=== PATIENT | male | born 1995 | race Caucasian/White ===

== ENCOUNTER 2017-08-16 22:47 | Observation (INO) | payer BC ==
[2017-08-16] MEDS ORDERED: KETOROLAC 30 MG/ML 1 ML VIAL IVP STA (23:57)
[2017-08-16] MEDS ORDERED: SODIUM CHLORIDE 0.9% 1,000 ML IV ONE (23:57)
--- NOTE | 2017-08-17 00:24 | XR ---
EXAMINATION TYPE: XR ankle complete bilateral DATE OF EXAM: 08/17/2017 COMPARISON: NONE HISTORY: Ankle pain and swelling TECHNIQUE: 6 views FINDINGS: there is soft tissue swelling around the right ankle. I see no fracture nor dislocation. Subtalar sae int spaces are normal. The left and right calcaneus appear intact. I see no focal bone destruction. IMPRESSION: Soft tissue swelling around the right ankle. No fracture seen. Normal left ankle.
[2017-08-17] MEDS: SODIUM CHLORIDE 0.9% 1,000 ML IV SCH ×3 (00:25→11:31)
[2017-08-17 00:41] LABS: Basophils # (A) 0.1 k/uL (0-0.2); Basophils % (A) 1 %; Eosinophils # (A) 0.3 k/uL (0-0.7); Eosinophils % (A) 2 %; HCT 41.6 % (39.0-53.0); HGB 14.2 gm/dL (13.0-17.5); Lymphocytes % (A) 16 %; MCH 29.2 pg (25.0-35.0); MCHC 34.1 g/dL (31.0-37.0); MCV 85.5 fL (80.0-100.0); Monocytes # (A) 0.9 k/uL (0-1.0); Monocytes % (A) 7 %; Neutrophils # (A) 9.2 k/uL (1.3-7.7); Neutrophils % (A) 73 %; Platelet Count 172 k/uL (150-450); RBC 4.86 m/uL (4.30-5.90); WBC 12.7 k/uL (3.8-10.6)
[2017-08-17 00:56] LABS: ALT 34 U/L (21-72); AST 22 U/L (17-59); Albumin 3.9 g/dL (3.5-5.0); Alkaline Phosphatase 28 U/L (38-126); Anion Gap 15 mmol/L; Blood Urea Nitrogen 19 mg/dL (9-20); C Reactive Protein 54.7 mg/L (<10.0); Calcium 9.6 mg/dL (8.4-10.2); Carbon Dioxide 23 mmol/L (22-30); Chloride 106 mmol/L (98-107); Glucose 118 mg/dL (74-99); Potassium 4.3 mmol/L (3.5-5.1); Sodium 144 mmol/L (137-145); Total Bilirubin 0.7 mg/dL (0.2-1.3); Total Protein 6.8 g/dL (6.3-8.2)
--- NOTE | 2017-08-17 01:58 | US ---
EXAMINATION TYPE: US venous doppler duplex LE RT DATE OF EXAM: 08/17/2017 12:41 AM COMPARISON: NONE CLINICAL HISTORY: Pain. Pain and edema right ankle SIDE PERFORMED: Right TECHNIQUE: The lower extremity deep venous system is examined utilizing real time linear array sonog dale with graded compression, doppler sonography and color-flow sonography. VESSELS IMAGED: External Iliac Vein (EIV) Common Femoral Vein Deep Femoral Vein Greater Saphenous Vein * Femoral Vein Popliteal Vein Small Saphenous Vein * Proximal Calf Veins (* superficial vessels) Right Leg: No evidence of DVT IMPRESSION: Normal exam. No evidence of deep venous thrombosis in the right leg.
[2017-08-17] MEDS ORDERED: ceFAZolin IN SWFI 2 GM/20 ML SYRINGE IVP STA (02:16)
--- NOTE | 2017-08-17 02:16 | ED ---
Lower Extremity Injury HPI - General Source: patient, RN notes reviewed, old records reviewed Mode of arrival: ambulatory Limitations: physical limitation <Trisha Bowman - Last Filed: 08/17/17 04:03> <Antolin Jewell - Last Filed: 08/17/17 20:40> - General Chief Complaint: Extremity Injury, Lower Stated Complaint: ankle pain Time Seen by Provider: 08/16/17 23:36 - History of Present Illness Initial Comments: This patient is a 22-year-old male presents emergency Department stay chief complaint of right ankle pain and swelling. He reports that he's had this swelling for the past 4 days. It started at on when he was at work. He relates that he has a tremor standing all the time. He states that he came home from work and then went to [facility]. That time he had some swelling and redness the ankle but was not as bad as it is today. He states he did a workup including ultrasound and x-rays and blood work. Everything was negative and they sent him home. He's been taking anti- inflammatory medicine and reports no relief of the pain and swelling. Denies any fever or chills. Denies any chest pain shortness of breath, urinary symptoms. (Trisha Bowman) - Related Data Home Medications Medication Instructions Recorded Confirmed Naproxen Sodium [Aleve] 440 mg PO Q12H PRN 08/17/17 08/17/17 Previous Rx's Medication Instructions Recorded Cephalexin [Keflex] 500 mg PO Q8HR #21 cap 08/17/17 Allergies Allergy/AdvReac Type Severity Reaction Status Date / Time No Known Allergies Allergy Verified 08/17/17 11:28 Review of Systems ROS Other: All systems not noted in ROS Statement are negative. <Trisha Bowman - Last Filed: 08/17/17 04:03> ROS Other: All systems not noted in ROS Statement are negative. <Antolin Jewell - Last Filed: 08/17/17 20:40> ROS Statement: Those systems with pertinent positive or pertinent negative responses have been documented in the HPI. Past Medical History Past Medical History: No Reported History History of Any Multi-Drug Resistant Organisms: None Reported Past Surgical History: No Surgical Hx Reported Past Psychological History: No Psychological Hx Reported Smoking Status: Current every day smoker Past Alcohol Use History: None Reported Past Drug Use History: None Reported - Past Family History Mother History Unknown: Yes <Trisha Bowman - Last Filed: 08/17/17 04:03> General Exam Limitations: physical limitation General appearance: alert, in no apparent distress Head exam: Present: atraumatic, normocephalic, normal inspection Eye exam: Present: normal appearance, PERRL, EOMI. Absent: scleral icterus, conjunctival injection, periorbital swelling ENT exam: Present: normal exam, mucous membranes moist Neck exam: Present: normal inspection. Absent: tenderness, meningismus, lymphadenopathy Respiratory exam: Present: normal lung sounds bilaterally. Absent: respiratory distress, wheezes, rales, rhonchi, stridor Cardiovascular Exam: Present: regular rate, normal rhythm, normal heart sounds. Absent: systolic murmur, diastolic murmur, rubs, gallop, clicks GI/Abdominal exam: Present: soft, normal bowel sounds. Absent: distended, tenderness, guarding, rebound, rigid Extremities exam: Present: normal inspection, full ROM, normal capillary refill. Absent: tenderness, pedal edema, joint swelling, calf tenderness Right Lower Leg exam: Present: normal inspection, full ROM, erythema (mild erythema extending over lower anterir leg. ) Ankle exam: Present: tenderness, swelling, erythema (Patient has tender and swollen right ankle, ). Absent: normal inspection, full ROM Foot/Toe exam: Present: tenderness, swelling, erythema. Absent: normal inspection Neurovascular tendon exam: Present: no vascular compromise Gait: observed and limited by pain Back exam: Present: normal inspection Neurological exam: Present: alert, oriented X3, CN II-XII intact Psychiatric exam: Present: normal affect, normal mood <Trisha Bowman - Last Filed: 08/17/17 04:03> <Antolin Jewell - Last Filed: 08/17/17 20:40> - General Exam Comments Initial Comments: This patient is a 22-year-old male. Alert and oriented. No distress. ( Trisha Bowman) Vital Signs 08/16/17 08/17/17 08/17/17 22:50 01:05 01:21 Temperature 98.7 F 98.5 F 98.1 F Pulse Rate 80 72 76 Respiratory 18 18 18 Rate Blood Pressure 134/72 170/79 168/82 O2 Sat by Pulse 99 98 98 Oximetry 08/17/17 02:36 Temperature 98.4 F Pulse Rate 71 Respiratory 18 Rate Blood Pressure 163/82 O2 Sat by Pulse 98 Oximetry Medical Decision Making - Lab Data Result diagrams: 08/17/17 00:12 08/17/17 00:12 - Radiology Data Radiology results: report reviewed <Trisha Bowman - Last Filed: 08/17/17 04:03> - Lab Data Result diagrams: 08/17/17 00:12 08/17/17 00:12 <Antolin Jewell - Last Filed: 08/17/17 20:40> - Medical Decision Making This patient is a 22-year-old male presents emergency department today chief complaint of right ankle pain and swelling for the past week. Discussed possibility of gout. He has a negative uric acid this time. I did start the patient on IV fluids and given Toradol and blood work obtained. He has a elevated CRP. Patient has a mildly elevated white blood cell count as well 12, 000. Normal lactic acid. We did do blood cultures. I will send a urinalysis and check for chlamydia or gonorrhea. There is a question of this is inflammatory arthritis such as gout, versus cellulitis over the skin. He does have some mild erythema over the lower leg. It is time I'll initiate IV antibiotics. Given steroids as well as her for arthritic cause. Is also noted that he has some mild erythema over the left medial ankle. He reports he has some mild pain with this but not as much swelling or irritation compared to the right ankle. At this time Rnoan the patient and consult orthopedics. Patient may need to have a joint aspiration over the right ankle. (Trisha Bowman) I saw this patient in conjunction with the physician marketing support assistant. I performed independent history and physical exam. Agree with case management. (Antolin Jewell) - Lab Data Lab Results 08/17/17 08/17/17 08/17/17 Range/Units 00:12 00:12 00:12 WBC 12.7 H (3.8-10.6) k/uL RBC 4.86 (4.30-5.90) m/uL Hgb 14.2 (13.0-17.5) gm/dL Hct 41.6 (39.0-53.0) % MCV 85.5 (80.0-100.0) fL MCH 29.2 (25.0-35.0) pg MCHC 34.1 (31.0-37.0) g/dL RDW 13.0 (11.5-15.5) % Plt Count 172 (150-450) k/uL Neutrophils % 73 % Lymphocytes % 16 % Monocytes % 7 % Eosinophils % 2 % Basophils % 1 % Neutrophils # 9.2 H (1.3-7.7) k/uL Lymphocytes # 2.0 (1.0-4.8) k/uL Monocytes # 0.9 (0-1.0) k/uL Eosinophils # 0.3 (0-0.7) k/uL Basophils # 0.1 (0-0.2) k/uL Sodium 144 (137-145) mmol/L Potassium 4.3 (3.5-5.1) mmol/L Chloride 106 (98-107) mmol/L Carbon Dioxide 23 (22-30) mmol/L Anion Gap 15 mmol/L BUN 19 (9-20) mg/dL Creatinine 0.80 (0.66-1.25) mg/dL Est GFR (CKD-EPI)AfAm >90 (>60 ml/min/1.73 sqM) Est GFR (CKD-EPI)NonAf >90 (>60 ml/min/1.73 sqM) Glucose 118 H (74-99) mg/dL Plasma Lactic Acid Lex 0.8 (0.7-2.0) mmol/L Uric Acid 8.0 (3.5-8.5) mg/dL Calcium 9.6 (8.4-10.2) mg/dL Total Bilirubin 0.7 (0.2-1.3) mg/dL AST 22 (17-59) U/L ALT 34 (21-72) U/L Alkaline Phosphatase 28 L (38-126) U/L C-Reactive Protein 54.7 H (<10.0) mg/L Total Protein 6.8 (6.3-8.2) g/dL Albumin 3.9 (3.5-5.0) g/dL - Radiology Data Ultrasound was reviewed and negative for DVT. X-ray of the right ankle does show significant soft tissue swelling. Left ankle x-ray was reviewed and normal. (Trisha Bowman) Disposition Time of Disposition: 02:15 <Trisha Bowman - Last Filed: 08/17/17 04:03> <Antolin Jewell - Last Filed: 08/17/17 20:40> Clinical Impression: Right ankle pain, Elevated C-reactive protein (CRP), Ankle cellulitis Disposition: ADMITTED IP TO THIS HOSP Condition: Stable
[2017-08-17] MEDS ORDERED: IBUPROFEN 400 MG TAB PO PRN (02:22)
[2017-08-17] MEDS ORDERED: ONDANSETRON 4 MG/2 ML VIAL IVP PRN (02:22)
[2017-08-17] MEDS ORDERED: KETOROLAC 30 MG/ML 1 ML VIAL IVP PRN (02:22)
[2017-08-17] MEDS ORDERED: NALOXONE 0.4 MG/ML 1 ML VIAL IV PRN (02:22)
[2017-08-17] MEDS ORDERED: ACETAMINOPHEN TAB 325 MG TAB PO PRN (02:22)
[2017-08-17] MEDS ORDERED: methylPREDNISolone SOD SUCCI 125 MG/2 ML VIAL IV STA (02:25)
[2017-08-17 02:50] LABS: Appearance,Urine Clear (Clear); Bilirubin,Urine Negative (Negative); Blood,Urine Small (Negative); Color,Urine Yellow; Glucose,Urine (UA) Negative (Negative); Ketones,Urine Negative (Negative); Leukocyte Esterase,Urine Negative (Negative); Mucus,Urine Occasional /hpf; Nitrite,Urine Negative (Negative); PH, Urine 5.5 (5.0-8.0); Protein,Urine Negative (Negative); RBC,Urine 9 /hpf (0-5); Specific Gravity,Urine 1.022 (1.001-1.035); WBC,Urine 8 /hpf (0-5)
[2017-08-17 03:00] VITALS: RESP 16
[2017-08-17 03:14] VITALS: BMI 40.1
[2017-08-17 07:52] VITALS: BP 116/53; PULSE 96; TEMP 97.8
--- NOTE | 2017-08-17 10:58 | P.CNOR ---
History of Present Illness - [facility] Consult date: 08/17/17 Consult reason: other (Right ankle swelling and redness) History of present illness: Patient is pleasant 22-year-old man who was seen and examined today bedside. His primary issue is that of right ankle swelling although he had noticed some swelling in his left ankle as well. He says he did not have any specific injury. He had no trauma or issues in his leg or ankle. He has no history of any swelling or problems in his right ankle in the past. He says that on just 3 days ago after working started noticing swelling in his right ankle. 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 He went to [facility] and had evaluation was sent home and told to follow-up with his primary care doctor. He was unable to work the next day as he felt significant pain with any putting any weight on it on Friday and he felt the swelling was significant worse and was more red. He presented to [facility] on Friday and was started on an antibiotic as well as a steroid medication. He was admitted to the hospital. He feels he is making significant benefit since yesterday's after starting the medications. He denies any injury. Denies any prior trauma. Denies any history of gout. He does not have any stasis or recent travel. He has no recent illness that he can think of. He denies any history of GI problems or GI issues or rheumatologic issues. Review of Systems As per HPI. Denies any GI or gastric issues. Denies any rheumatologic issues in the past. He is not having any ALLERGIES. Denies any recent travel. Denies any bites or scratches or abrasions around his ankles. Denies any new tattoos. Constitutional: Reports as per HPI Past Medical History Past Medical History: No Reported History History of Any Multi-Drug Resistant Organisms: None Reported Past Surgical History: No Surgical Hx Reported Past Psychological History: No Psychological Hx Reported Smoking Status: Current every day smoker Past Alcohol Use History: None Reported Past Drug Use History: None Reported - Past Family History Mother History Unknown: Yes Medications and Allergies Home Medications Medication Instructions Recorded Confirmed Type Cephalexin [Keflex] 500 mg PO Q8HR #21 cap 08/17/17 Rx Allergies Allergy/AdvReac Type Severity Reaction Status Date / Time No Known Allergies Allergy Verified 08/16/17 22:54 Physical Examination Osteopathic Statement: *. No significant issues noted on an osteopathic structural exam other than those noted in the History and Physical/Consult. - Ankle & Foot right Ankle appearance: swelling, erythema (And his right ankle there is some diffuse swelling. He is able to move his ankle up and down and set aside without any significant pain though his overall motion is somewhat limited due to the swelling. He is not having severe pain with passive range of motion. He has some tenderness to palpation over his medial and lateral malleolus though there is no crepitus. The erythema is significantly improved as he has outlined mc from the erythema from last night apparently. There is no fluid collection specifically. There is no abscess. There is no focal fluid under pressure. He has sustained dorsal flexion plantar flexion and extensor hallucis longus with 5 out of 5 muscle strength throughout. His no pain in his knee or calf. There is no swelling of his calf. There is no streaking. I do not see any evidence of specific abrasion or bite yung. His left ankle apparently had some swelling yesterday but this is resolved. He is no pain in his hips. His abdomen soft nontender. He has diffuse tattoos over his upper extremities.) Results - Labs Labs: Abnormal Lab Results - Last 24 Hours (Table) 08/17/17 08/17/17 08/17/17 Range/Units 00:12 00:12 02:24 WBC 12.7 H (3.8-10.6) k/uL Neutrophils # 9.2 H (1.3-7.7) k/uL Glucose 118 H (74-99) mg/dL Alkaline Phosphatase 28 L (38-126) U/L C-Reactive Protein 54.7 H (<10.0) mg/L Urine Blood Small H (Negative) Urine RBC 9 H (0-5) /hpf Urine WBC 8 H (0-5) /hpf Urine Mucus Occasional H (None) /hpf H & H 08/17/17 Range/Units 00:12 Hgb 14.2 (13.0-17.5) gm/dL Hct 41.6 (39.0-53.0) % Result Diagrams: 08/17/17 00:12 08/17/17 00:12 - Diagnostic results Ankle/Foot x-ray: report reviewed (X-rays his bilateral ankles show good overall alignment and position of the joints. There is no evidence of any fracture or dislocation. There is no air.), image reviewed Assessment and Plan Assessment: Right ankle pain and swelling Likely cellulitis of the right ankle No evidence of any fracture or instability Plan: Right ankle pain and swelling Likely cellulitis of the right ankle No evidence of any fracture or instability The patient's ankle pain and swelling seems to be resolving well with medical management. He does not have any evidence of instability or fracture and I do not think that he needs further imaging at this point. He has good motion at his ankle joint itself and I think his ankle is stable and okay for him to weight-bear as tolerated. I do not see any evidence of any specific fluid collection or fluid under pressure. I do not have any plans for surgical intervention at this point. There is some slight increase in his white blood count and his CRP likely due to his cellulitis around his right ankle. This could be an isolated issue with gout or possible rheumatologic issue and development. Most likely notices some acute cellulitic issue which should resolve appropriately with acute medical management. I would plan to forego any aspiration of his ankle joint elicits good motion at this point. He is making good progress with medical management and should continue his steroid and oral and antibiotic as planned per medicine. He is scheduled to go home today and I think that is appropriate. We can follow him up in the next 1-2 days for recheck evaluation and further workup as needed.
--- NOTE | 2017-08-17 11:51 | P.DS ---
Providers Date of admission: 08/17/17 02:11 Attending physician: Clinton Licea Consults: 08/17/17 02:22 Consult Physician Stat Consulting Provider: Ernie Cadet Reason/Comments: Right ankle swelling, Gout vs. Septic Arthritis Do you want consulting provider notified?: Yes, Notify in am Primary care physician: Stated None Hospital Course: As described in HPI Patient Condition at Discharge: Stable Plan - Discharge Summary New Discharge Prescriptions: New Cephalexin [Keflex] 500 mg PO Q8HR #21 cap No Action Naproxen Sodium [Aleve] 440 mg PO Q12H PRN PRN Reason: Pain Discharge Medication List Cephalexin [Keflex] 500 mg PO Q8HR #21 cap 08/17/17 [Rx] Naproxen Sodium [Aleve] 440 mg PO Q12H PRN 08/17/17 [History] Follow up Appointment(s)/Referral(s): Gabe Hawthorne, [Doctor of Osteopathic Medicine] - 1-2 Days () None,Stated [Primary Care Provider] - 1-2 days Patient Instructions/Handouts: Cephalexin (By mouth), Cellulitis (DC), Swollen Joint (GEN) Discharge Disposition: HOME SELF-CARE
--- NOTE | 2017-08-17 11:51 | P.HPIM ---
History of Present Illness 22-year-old man who was seen and examined today bedside. His primary issue is that of right ankle swelling although he had noticed some swelling in his left ankle as well. He says he did not have any specific injury. He had no trauma or issues in his leg or ankle. He has no history of any swelling or problems in his right ankle in the past. He says that on just 3 days ago after working started noticing swelling in his right ankle. 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 He went to [facility] and had evaluation was sent home and told to follow-up with his primary care doctor. He was unable to work the next day as he felt significant pain with any putting any weight on it on Friday and he felt the swelling was significant worse and was more red. He presented to [facility] on Friday and was started on an antibiotic as well as a steroid medication. He was admitted to the hospital. He feels he is making significant benefit since yesterday's after starting the medications. Patient was a valid by Dr. Hawthorne cleared for discharge will follow with her partner partial outpatient patient did not have any history of MRSA in the past and patient probably has streptococcal cellulitis in both limbs weight loss was advised. Review of Systems REVIEW OF SYSTEMS: CONSTITUTIONAL: No fever, no malaise, no fatigue. HEENT: No recent visual problems or hearing problems. Denied any sore throat. CARDIOVASCULAR: No chest pain, orthopnea, PND, no palpitations, no syncope. PULMONARY: No shortness of breath, no cough, no hemoptysis. GASTROINTESTINAL: No diarrhea, no nausea, no vomiting, no abdominal pain. Normoactive bowel sounds. NEUROLOGICAL: No headaches, no weakness, no numbness. HEMATOLOGICAL: Denies any bleeding or petechiae. GENITOURINARY: Denies any burning micturition, frequency, or urgency. MUSCULOSKELETAL/RHEUMATOLOGICAL: Denies any joint pain, swelling, or any muscle pain. ENDOCRINE: Denies any polyuria or polydipsia. The rest of the 14-point review of systems is negative. Past Medical History Past Medical History: No Reported History History of Any Multi-Drug Resistant Organisms: None Reported Past Surgical History: No Surgical Hx Reported Past Psychological History: No Psychological Hx Reported Smoking Status: Current every day smoker Past Alcohol Use History: None Reported Past Drug Use History: None Reported - Past Family History Mother History Unknown: Yes Medications and Allergies Home Medications Medication Instructions Recorded Confirmed Type Cephalexin [Keflex] 500 mg PO Q8HR #21 cap 08/17/17 Rx Naproxen Sodium [Aleve] 440 mg PO Q12H PRN 08/17/17 08/17/17 History Allergies Allergy/AdvReac Type Severity Reaction Status Date / Time No Known Allergies Allergy Verified 08/17/17 11:28 Physical Exam Vitals: Vital Signs Temp Pulse Pulse Resp BP BP Pulse Ox 08/17/17 07:00 97.8 F 96 16 116/53 97 08/17/17 02:59 97.0 F L 78 16 159/77 97 08/17/17 02:36 98.4 F 71 18 163/82 98 08/17/17 01:21 98.1 F 76 18 168/82 98 08/17/17 01:05 98.5 F 72 18 170/79 98 08/16/17 22:50 98.7 F 80 18 134/72 99 Intake and Output 08/16/17 08/17/17 08/17/17 22:59 06:59 14:59 Intake Total 850 Balance 850 Intake: IV 500 Sodium Chloride 0.9% 1, 500 000 ml @ 100 mls/hr IV . Q10H PINA Rx#:[id number] Oral 350 Other: Voiding Method Toilet Toilet # Voids 1 Weight 128.367 kg 127.006 kg PHYSICAL EXAMINATION: GENERAL: The patient is alert and oriented x3, not in any acute distress. Well developed, well nourished. Obese HEENT: Pupils are round and equally reacting to light. EOMI. No scleral icterus. No conjunctival pallor. Normocephalic, atraumatic. No pharyngeal erythema. No thyromegaly. CARDIOVASCULAR: S1 and S2 present. No murmurs, rubs, or gallops. PULMONARY: Chest is clear to auscultation, no wheezing or crackles. ABDOMEN: Soft, nontender, nondistended, normoactive bowel sounds. No palpable organomegaly. MUSCULOSKELETAL: No joint swelling or deformity. EXTREMITIES: No cyanosis, clubbing, or pedal edema. NEUROLOGICAL: Gross neurological examination did not reveal any focal deficits. SKIN: Patient has left ankle cellulitis and there are areas of cellulitis in the right lower leg as well which improved at this point of time patient has Citrobacter infection Results CBC & Chem 7: 08/17/17 00:12 08/17/17 00:12 Labs: Abnormal Lab Results - Last 24 Hours (Table) 08/17/17 08/17/17 08/17/17 Range/Units 00:12 00:12 02:24 WBC 12.7 H (3.8-10.6) k/uL Neutrophils # 9.2 H (1.3-7.7) k/uL Glucose 118 H (74-99) mg/dL Alkaline Phosphatase 28 L (38-126) U/L C-Reactive Protein 54.7 H (<10.0) mg/L Urine Blood Small H (Negative) Urine RBC 9 H (0-5) /hpf Urine WBC 8 H (0-5) /hpf Urine Mucus Occasional H (None) /hpf Thrombosis Risk Factor Assmnt - Choose All That Apply Any of the Below Risk Factors Present?: Yes Each Factor Represents 1 point: Obesity (BMI >25), Swollen legs (current) Other Risk Factors: No Other congenital or acquired thrombophilia - If yes, enter type in comment: No Thrombosis Risk Factor Assessment Total Risk Factor Score: 2 Thrombosis Risk Factor Assessment Level: Low Risk Assessment and Plan Plan: -Cellulitis of bilateral lower limbs: She'll be discharged on Keflex for 7 days. Patient will follow with Dr. Hawthorne. -Rule out fracture -Obesity: Counseling was provided
[2017-08-17] MEDS ORDERED: ceFAZolin 1,000 MG in DEXTROSE/WATER 1 50ML.BAG IVPB SCH (12:00)
[2017-08-18 15:44] LABS: C. trachomatis,PCR Positive (Neg,Equiv); Chlamydia trachomatis Source Urine
[2017-08-18 15:47] LABS: N. gonorrhoeae,PCR Negative (Neg,Equiv); Neisseria Source Urine
== END 2017-08-17 13:00 | disposition home or self-care (01) ==
LOC: EC 22:47 → 5MS5E 08-17 02:11
PROVIDERS: ADMIT Internal Medicine; ATTEND Internal Medicine
DX: L03.115 Cellulitis of right lower limb (principal); L03.116 Cellulitis of left lower limb; R25.1 Tremor, unspecified; F17.200 Nicotine dependence, unspecified, uncomplicated; E66.9 Obesity, unspecified; Z68.41 Body mass index [BMI] 40.0-44.9, adult
CPT/HCPCS: 36415; 80053; 81001; 83605; 84550; 85025; 86140; 87040; 87491; 87591; 96361; 96374; 96375; 99284

== ENCOUNTER → 2020-05-22 | Outpatient (CLI) | payer BC | END | disposition home or self-care (01) | LOC: LABWHC1 13:23 | PROVIDERS: ATTEND Emergency Medicine | DX: Z20.822 Contact with and (suspected) exposure to COVID-19 (principal) | CPT/HCPCS: U0003; C9803; U0005 ==

== ENCOUNTER 2021-10-05 13:04 | Emergency (ER) | payer BC ==
[2021-10-05] MEDS ORDERED: FLUORESCEIN STRIPS 1 MG STRIP RIGHT EYE ONE (13:38)
[2021-10-05] MEDS ORDERED: PROPARACAINE 0.5% OPHTH DROPS 15 ML BTL RIGHT EYE STA (13:38)
--- NOTE | 2021-10-05 14:36 | ED ---
General Adult HPI - General Chief complaint: Eye Problems Stated complaint: [facility]-Eye Injury Time Seen by Provider: 10/05/21 14:15 Source: patient, family, RN notes reviewed, old records reviewed Mode of arrival: ambulatory Limitations: no limitations - History of Present Illness Initial comments: This is a well-appearing 26-year-old male who presents to the emergency room with sensation of foreign body in his right eye. Patient states on his way home from work last night at 10:30 he felt like an "eyelash" was in his eye. He started to rub the eye and he has had pain since. He denies any vision changes. Denies any headaches. -: days(s) (1) Location: eyes, right Radiation: non-radiation Severity scale (1-10): 3 Quality: constant Consistency: constant Improves with: none Worsens with: movement (eye movement) Associated Symptoms: denies other symptoms Treatments Prior to Arrival: other (saline eye drops) - Related Data Home Medications Medication Instructions Recorded Confirmed Naproxen Sodium [Aleve] 440 mg PO Q12H PRN 08/17/17 08/17/17 Previous Rx's Medication Instructions Recorded Cephalexin [Keflex] 500 mg PO Q8HR #21 cap 08/17/17 Polymyxin B-Trimeth Sulf Ophth 1 drops RIGHT EYE Q4H 7 Days #10 ml 10/05/21 [Polytrim Opthalmic] Allergies Allergy/AdvReac Type Severity Reaction Status Date / Time No Known Allergies Allergy Verified 10/05/21 13:19 Review of Systems ROS Statement: Those systems with pertinent positive or pertinent negative responses have been documented in the HPI. ROS Other: All systems not noted in ROS Statement are negative. Past Medical History Past Medical History: No Reported History History of Any Multi-Drug Resistant Organisms: None Reported Past Surgical History: No Surgical Hx Reported Past Psychological History: No Psychological Hx Reported Smoking Status: Current every day smoker Past Alcohol Use History: Rare Past Drug Use History: Marijuana - Past Family History Mother History Unknown: Yes General Exam Limitations: no limitations General appearance: alert, in no apparent distress Head exam: Present: atraumatic Eye exam: Present: PERRL, EOMI, conjunctival injection. Absent: scleral icterus, nystagmus, periorbital swelling, periorbital tenderness Pupils: Present: normal accommodation Expanded Eyelids: Stye: Right (Right upper lateral) Sclera/Conjunctival: Injection: Right Anterior chamber: Normal Inspection: Right Respiratory exam: Absent: respiratory distress, accessory muscle use Cardiovascular Exam: Present: regular rate Neurological exam: Present: alert, oriented X3 Psychiatric exam: Present: normal affect, normal mood Skin exam: Present: warm, dry, normal color. Absent: cyanosis, diaphoretic, petechiae, pallor Course Vital Signs 10/05/21 13:16 Temperature 98.6 F Pulse Rate 72 Respiratory 18 Rate Blood Pressure 125/76 O2 Sat by Pulse 99 Oximetry Medical Decision Making - Medical Decision Making Patient presents with right eye irritation since last night. There is no evidence of corneal abrasion with fluorescein and faulkner lamp exam. Patient denies any visual changes. He denies any headaches. Case discussed with Dr. Woodall who recommended antibiotic ointment prophylactically. Follow-up with ophthalmology this week. Disposition Clinical Impression: Nicolette Cueto, internal Disposition: HOME SELF-CARE Condition: Good Instructions (If sedation given, give patient instructions): Rom (ED) Additional Instructions: Use warm compresses multiple times throughout the day and antibiotic ointment as prescribed. Follow-up with ophthalmology next week. Return to the emergency room with any new or concerning symptoms. Prescriptions: Polymyxin B-Trimeth Sulf Ophth [Polytrim Opthalmic] 1 drops RIGHT EYE Q4H 7 Days #10 ml Is patient prescribed a controlled substance at d/c from ED?: No Referrals: None,Stated [Primary Care Provider] - 1-2 days Renee Parks MD [STAFF PHYSICIAN] - 1-2 days Time of Disposition: 14:35
[2021-10-05 15:05] VITALS: BP 107/70; PULSE 58; RESP 16; TEMP 98.7
== END 2021-10-05 15:08 | disposition home or self-care (01) ==
LOC: EC 13:04
DX: H00.013 Hordeolum externum right eye, unspecified eyelid (principal); F17.200 Nicotine dependence, unspecified, uncomplicated